=== PATIENT | female | born 1950 | race African-American/Black ===

== ENCOUNTER → 2018-03-17 | Outpatient (CLI) | payer BC ==
--- NOTE | 2018-03-17 08:19 | RAD ---
Pelvic ultrasound, 03/17/2018: HISTORY: Pelvic pain Transabdominal and transvaginal scans were obtained. The uterus measures 6 x 4 x 3 cm. The central uterine echo complex measures 2-3 mm. No uterine mass is evident. The right ovary measures 2.2 x 1.3 x 1.8 cm. The left ovary measures 2.7 x 1.2 x 1.2 cm. There is blood flow in both ovaries. No ovarian or adnexal mass is seen. No free fluid is evident in the pelvis. IMPRESSION: No significant abnormality is detected. Electronically signed by: Clark Bee MD (03/17/2018 8:16 AM) [facility]
== END | disposition home or self-care (01) ==
LOC: US 06:49
PROVIDERS: ATTEND Obstetrics & Gynecology
DX: D25.9 Leiomyoma of uterus, unspecified (principal)
CPT/HCPCS: 76830; 76856

== ENCOUNTER → 2019-07-16 | Outpatient (CLI) | payer BC ==
[~2019-07-16] MED LIST: IOHEXOL 240 MG/ML 50ML VIAL. PO ONE; IOHEXOL 300 MG/ML 100ML VIAL. IV ONE
--- NOTE | 2019-07-16 14:29 | KCIC ---
EXAM: Abdomen and pelvis CT with intravenous contrast. HISTORY: Pelvic pain. TECHNIQUE: Computed tomographic images of the abdomen and pelvis were obtained following the administration of 89 cc Omnipaque 300 intravenous contrast. Multiplanar reformatting was performed. *One or more of the following individualized dose reduction techniques were utilized for this examination: 1. Automated exposure control. 2. Adjustment of the mA and/or kV according to patient size. 3. Use of iterative reconstruction technique. COMPARISON: None. FINDINGS: Evaluation of the lower thorax is unremarkable. Their is a tiny hypodense lesion within the inferior right hepatic lobe. The liver is upper normal in size. The gallbladder, pancreas, spleen, adrenal glands and kidneys are unremarkable. The appendix is normal in appearance. There is a moderate amount of colonic stool. There is no evidence of bowel obstruction. The aorta is normal in caliber. There is aortic and aortic branch vessel atherosclerosis. There is a circumaortic left renal vein, an incidental finding. There is no lymphadenopathy. There is mild urinary bladder wall thickening which may be due to underdistention. The uterus and ovaries are unremarkable. There is grade 1 anterolisthesis of L4 and L5. IMPRESSION: 1. Mild urinary bladder wall thickening. This may be due to cystitis or underdistention. Correlate with urinalysis. 2. Moderate colonic stool. 2. Tiny hypodense lesion within the liver. In the absence of known malignancy, this is likely a cyst. Electronically signed by: Padmini Kelly MD (07/16/2019 2:26 PM) [id number]
== END | disposition home or self-care (01) ==
LOC: KCIC 11:47
PROVIDERS: ATTEND Obstetrics & Gynecology
DX: N32.89 Other specified disorders of bladder (principal); K76.9 Liver disease, unspecified
CPT/HCPCS: 74177; 82565; Q9966; Q9967